=== PATIENT | female | born 1955 | race Two or more races ===

== ENCOUNTER 2021-07-31 10:11 | Emergency (ER) | payer OTHER ==
[~2021-07-31] VITALS: Ht 152.4 cm; Wt 77.1 kg
[2021-07-31 10:20] VITALS: BP 145/85
[2021-07-31] MEDS ORDERED: IV NS 0.9% 1,000 ML BAG IV ONE (10:30)
[2021-07-31] MEDS ORDERED: ONDANSETRON HCL/PF 4 MG/2 ML VIAL IVP ONE (10:30)
[2021-07-31] MEDS ORDERED: MORPHINE SULFATE INJ 2 MG/ML DISP.SYRIN IV ONE (10:30)
[2021-07-31] MEDS ORDERED: MORPHINE SULFATE INJ 4 MG/ML DISP.SYRIN ONE (10:32)
[2021-07-31] MEDS ORDERED: ONDANSETRON HCL/PF 4 MG/2 ML VIAL ONE (10:32)
--- NOTE | 2021-07-31 10:47 | NUR ---
Blood works sent to lab
--- NOTE | 2021-07-31 10:47 | NUR ---
Hep lock started IVF - NS 1 liter bolus x 1 Pain meds given as ordered
[2021-07-31 10:58] LABS: BASOPHILS % (AUTO) 0.5 % (0.0-2.0); EOSINOPHILS % (AUTO) 1.3 % (0.0-6.0); HEMATOCRIT 41 % (33-45); HEMOGLOBIN 13.6 g/dL (11.5-14.8); LYMPHOCYTES # (AUTO) 1.7 K/uL (0.8-4.8); LYMPHOCYTES % (AUTO) 20.9 % (20.0-44.0); MEAN CORPUSCULAR HGB CONC 33 g/dl (31.0-36.0); MEAN CORPUSCULAR VOLUME 94 fL (82-100); MONOCYTES # (AUTO) 0.5 K/uL (0.1-1.30); MONOCYTES % (AUTO) 5.9 % (2.0-12.0); NEUTROPHILS # (AUTO) 5.8 K/uL (1.8-8.9); NEUTROPHILS % (AUTO) 71.4 % (43.0-81.0); PLATELET COUNT (AUTO) 219 K/uL (150-450); RED BLOOD CELL COUNT(AUTO) 4.34 MIL/uL (4.0-5.2); WHITE BLOOD COUNT (AUTO) 8.2 K/uL (4.3-11.0)
[2021-07-31] MEDS ORDERED: OMEP40CA21 PO (11:06)
[2021-07-31] MEDS ORDERED: METO25TA3 PO (11:06)
[2021-07-31 11:13] LABS: CALCIUM, SERUM 8.6 mg/dL (8.5-10.1); CREATININE 0.6 mg/dL (0.6-1.3)
[2021-07-31 11:19] LABS: ALBUMIN 3.2 g/dL (3.4-5.0); BILIRUBIN,DIRECT 1.2 mg/dL (0.0-0.2); BILIRUBIN,TOTAL 2.3 mg/dL (0.2-1.0); TOTAL PROTEIN, SERUM 6.6 g/dL (6.4-8.2)
--- NOTE | 2021-07-31 11:29 | NUR ---
COVID TEST COLLECTED AND SENT
--- NOTE | 2021-07-31 14:48 | NUR ---
PT ADMITTED TO [facility] UNDER DR ROTHMAN. REPORT TO BE GIVEN TO NURSE MIRI [phone]. ETA FOR ONCOLOGY REP SPECIALIST AM [facility] 50 MINUTES.
--- NOTE | 2021-07-31 14:50 | NUR ---
ROOM 302-A
--- NOTE | 2021-07-31 15:35 | NUR ---
REPORT GIVEN TO AMBULANCE STAFF PATIENT FOR TRANSFER TO [facility] FOR BANDAR
== END 2021-07-31 15:53 | disposition short-term general hospital (02) ==
LOC: ER 10:18
DX: K80.51 Calculus of bile duct without cholangitis or cholecystitis with obstruction (principal); K76.89 Other specified diseases of liver; Z20.822 Contact with and (suspected) exposure to COVID-19; I10 Essential (primary) hypertension; Z79.899 Other long term (current) drug therapy; F32.A Depression, unspecified; F41.9 Anxiety disorder, unspecified
CPT/HCPCS: 36415; 76705; 80048; 80076; 83690; 85025; 87426; 96361; 96374; 96375; 99284; C9803; J2270; J2405; J7030